=== PATIENT | male | born 1960 | race Caucasian/White ===

== ENCOUNTER 2016-10-26 19:05 | Inpatient (IN) | payer SELFPAY ==
[~2016-10-26] VITALS: Ht 182.9 cm; Wt 78.5 kg
[2016-10-26] MEDS ORDERED: ONDANSETRON HCL 4MG/2ML VIAL IV STA (23:32)
[2016-10-26] MEDS ORDERED: SODIUM CHLORIDE 0.9% 1,000 ML IV ONE (23:32)
[2016-10-26] MEDS ORDERED: MORPHINE SULFATE 4 MG/ML CPJ (NOT FOR IM USE) IV STA (23:32)
[2016-10-26] MEDS ORDERED: VANCOMYCIN 1 G PREMIX 200 ML IV ONE (23:45)
[2016-10-26] MEDS ORDERED: PIPERACILLIN/TAZ 3.375G PREMIX 50 ML IV ONE (23:45)
[2016-10-27 00:04] LABS: HEMATOCRIT. 40.9 % (42.0-52.0); HEMOGLOBIN. 14.4 g/dL (14.0-18.0); MEAN CORPUSCULAR HEMOGLOBIN 30.5 pg (28.0-32.0); MEAN PLATELET VOLUME 8.3 fl (7.4-10.4); PLATELET 128 x1000/uL (130-400); RED CELL DISTRIBUTION WIDTH 13.2 % (11.6-14.6)
[2016-10-27 00:09] LABS: CHLORIDE 95 mEq/L (98-107)
[2016-10-27 00:25] LABS: CARBON DIOXIDE 23 mEq/L (21-32); CREATINE KINASE 30 IU/L (39-308)
[2016-10-27 00:33] LABS: PLATELET ESTIMATE NORMAL
[2016-10-27] MEDS ORDERED: MORPHINE SULFATE 4 MG/ML CPJ (NOT FOR IM USE) IV ONE (02:15)
[2016-10-27] MEDS ORDERED: GUAIFENESIN 200MG/10ML SUGAR FREE UDC PO PRN (06:45)
[2016-10-27] MEDS ORDERED: DOCUSATE SODIUM 100MG CAPSULE PO PRN (06:45)
[2016-10-27] MEDS ORDERED: ONDANSETRON HCL 4MG/2ML VIAL IV PRN (06:45)
[2016-10-27] MEDS ORDERED: MAGNESIUM/ALUMINUM HYDROXIDE/SIMETHICONE 30ML UDC PO PRN (06:45)
[2016-10-27] MEDS ORDERED: NA PHOS,M-B/NA PHOS,DI-BA ENEMA 118ML PR PRN (06:45)
[2016-10-27] MEDS ORDERED: IPRATROPIUM/ALBUTEROL 0.5-3(2.5)MG/3ML NEB INH PRN (06:45)
[2016-10-27] MEDS ORDERED: LORAZEPAM 2MG/ML CPJ IV PRN (06:45)
[2016-10-27] MEDS ORDERED: CLONIDINE 0.1MG TABLET PO PRN (06:45)
[2016-10-27] MEDS ORDERED: SODIUM CHLORIDE 0.45% 1,000 ML IV SCH (07:30)
[2016-10-27 08:00] VITALS: BP 134/70
[2016-10-27] MEDS: PIPERACILLIN/TAZ 3.375G PREMIX 50 ML IV SCH ×3 (09:21→23:00)
[2016-10-27] MEDS: ASPIRIN 81MG EC TABLET PO SCH (09:22)
[2016-10-27] MEDS: ENOXAPARIN 40MG/0.4ML SYR SUBCUT SCH (09:22)
[2016-10-27] MEDS: HYDROMORPHONE HCL/PF 2MG/ML CPJ IV PRN ×3 (09:23→18:11)
[2016-10-27 10:50] LABS: CARBON DIOXIDE 23 mEq/L (21-32); CHLORIDE 97 mEq/L (98-107)
[2016-10-27] MEDS: VANCOMYCIN 1 G PREMIX 200 ML IV SCH ×2 (10:51→16:29)
[2016-10-27] MEDS: ACETAMINOPHEN 325MG TABLET PO PRN (11:14)
[2016-10-27 12:00] VITALS: BP 138/77
[2016-10-27] MEDS: HYDROCODONE/APAP 7.5/325MG 1 TAB TABLET PO PRN (13:39)
[2016-10-27 16:00] VITALS: BP 119/75
[2016-10-27 16:56] VITALS: BP 134/70
[2016-10-27] MEDS ORDERED: FUROSEMIDE 40MG/4ML VIAL IVP NR (19:30)
[2016-10-27 20:12] VITALS: BP 122/72
[2016-10-28 00:03] VITALS: BP 122/66
[2016-10-28] MEDS: VANCOMYCIN 1 G PREMIX 200 ML IV SCH ×3 (00:17→17:58)
[2016-10-28] MEDS: HYDROCODONE/APAP 7.5/325MG 1 TAB TABLET PO PRN (00:18)
[2016-10-28] MEDS: HYDROMORPHONE HCL/PF 2MG/ML CPJ IV PRN ×5 (02:05→21:41)
[2016-10-28 04:00] VITALS: BP 125/69
[2016-10-28 05:53] LABS: BASOPHILS % 0.3 % (0.0-2.0); EOSINOPHILS % 0.3 % (0.0-5.0); HEMATOCRIT. 37.7 % (42.0-52.0); HEMOGLOBIN. 13.1 g/dL (14.0-18.0); LYMPHOCYTES % 15.1 % (20.0-50.0); MEAN CORPUSCULAR HEMOGLOBIN 30.7 pg (28.0-32.0); MEAN CORPUSCULAR VOLUME 88.5 fL (80.0-94.0); MEAN PLATELET VOLUME 8.3 fl (7.4-10.4); MONOCYTES % 8.9 % (2.0-8.0); NEUTROPHILS % 75.4 % (40.0-76.0); PLATELET 158 x1000/uL (130-400); RED BLOOD CELL COUNT 4.26 mill/uL (4.7-6.1); RED CELL DISTRIBUTION WIDTH 13.4 % (11.6-14.6)
[2016-10-28 06:14] LABS: CARBON DIOXIDE 25 mEq/L (21-32); CHLORIDE 91 mEq/L (98-107)
[2016-10-28 06:17] LABS: HDL CHOLESTEROL 11 mg/dL (40-59); LDL CHOLESTEROL 71 mg/dL (5-100)
[2016-10-28] MEDS ORDERED: DEXTROSE 50% WATER 50ML SYRINGE IV PRN (07:30)
[2016-10-28] MEDS: PIPERACILLIN/TAZ 3.375G PREMIX 50 ML IV SCH ×3 (07:50→21:43)
[2016-10-28 08:00] VITALS: BP 116/93
[2016-10-28] MEDS: BLOOD SUGAR DIAGNOSTIC STRIP TEST SCH ×4 (08:00→21:17)
[2016-10-28] MEDS: ASPIRIN 81MG EC TABLET PO SCH (09:03)
[2016-10-28] MEDS: ENOXAPARIN 40MG/0.4ML SYR SUBCUT SCH (09:04)
[2016-10-28] MEDS: FUROSEMIDE 40MG/4ML VIAL IVP SCH (09:04)
[2016-10-28] MEDS: INSULIN LISPRO 100 UNITS/ML SUBCUT SCH ×4 (09:05→21:39)
[2016-10-28 12:00] VITALS: BP 145/69
[2016-10-28] MEDS ORDERED: POTASSIUM CHLORIDE 20MEQ TABLET SR PO SCH (12:15)
[2016-10-28 16:00] VITALS: BP 123/74
[2016-10-28 20:00] VITALS: BP 133/86
[2016-10-29 00:01] VITALS: BP 121/69
[2016-10-29] MEDS ORDERED: ACETAMINOPHEN WITH CODEINE 300/30MG TABLET ONE (01:00)
[2016-10-29] MEDS: VANCOMYCIN 1 G PREMIX 200 ML IV SCH ×3 (01:08→16:10)
[2016-10-29] MEDS: HYDROCODONE/APAP 7.5/325MG 1 TAB TABLET PO PRN (01:20)
[2016-10-29 04:00] VITALS: BP 119/73
[2016-10-29] MEDS: PIPERACILLIN/TAZ 3.375G PREMIX 50 ML IV SCH ×4 (04:09→20:59)
[2016-10-29] MEDS: HYDROMORPHONE HCL/PF 2MG/ML CPJ IV PRN ×5 (06:30→20:59)
[2016-10-29] MEDS: BLOOD SUGAR DIAGNOSTIC STRIP TEST SCH ×4 (07:35→22:47)
[2016-10-29 08:00] VITALS: BP 130/77
[2016-10-29] MEDS: FUROSEMIDE 40MG/4ML VIAL IVP SCH (08:24)
[2016-10-29] MEDS: ASPIRIN 81MG EC TABLET PO SCH (08:24)
[2016-10-29] MEDS: ENOXAPARIN 40MG/0.4ML SYR SUBCUT SCH (08:24)
[2016-10-29] MEDS: INSULIN LISPRO 100 UNITS/ML SUBCUT SCH ×4 (09:43→22:22)
[2016-10-29 12:00] VITALS: BP 2/98
[2016-10-29] MEDS: ACETAMINOPHEN 325MG TABLET PO PRN (12:11)
[2016-10-29 16:00] VITALS: BP 135/76
[2016-10-29 20:00] VITALS: BP 122/81
[2016-10-30] VITALS: BP 112/61
[2016-10-30] MEDS: VANCOMYCIN 1 G PREMIX 200 ML IV SCH ×2 (00:01→08:33)
[2016-10-30] MEDS: ACETAMINOPHEN 325MG TABLET PO PRN (00:06)
[2016-10-30] MEDS: PIPERACILLIN/TAZ 3.375G PREMIX 50 ML IV SCH ×2 (03:11→10:00)
[2016-10-30] MEDS: HYDROMORPHONE HCL/PF 2MG/ML CPJ IV PRN (03:11)
[2016-10-30 04:00] VITALS: BP 108/77
[2016-10-30 07:19] LABS: HEMATOCRIT. 37.2 % (42.0-52.0); HEMOGLOBIN. 12.9 g/dL (14.0-18.0); MEAN CORPUSCULAR HEMOGLOBIN 30.1 pg (28.0-32.0); MEAN PLATELET VOLUME 8.2 fl (7.4-10.4); PLATELET 223 x1000/uL (130-400); RED BLOOD CELL COUNT 4.28 mill/uL (4.7-6.1); RED CELL DISTRIBUTION WIDTH 13.5 % (11.6-14.6)
[2016-10-30] MEDS: BLOOD SUGAR DIAGNOSTIC STRIP TEST SCH (07:19)
[2016-10-30 07:20] LABS: CARBON DIOXIDE 31 mEq/L (21-32); CHLORIDE 86 mEq/L (98-107)
[2016-10-30 08:00] VITALS: BP 130/76
[2016-10-30] MEDS ORDERED: POTASSIUM CHLORIDE 20MEQ TABLET SR PO NR (08:00)
[2016-10-30] MEDS: ENOXAPARIN 40MG/0.4ML SYR SUBCUT SCH (08:32)
[2016-10-30] MEDS: ASPIRIN 81MG EC TABLET PO SCH (08:33)
[2016-10-30] MEDS: FUROSEMIDE 40MG/4ML VIAL IVP SCH (08:33)
[2016-10-30] MEDS: INSULIN LISPRO 100 UNITS/ML SUBCUT SCH (08:36)
[2016-10-30] MEDS: HYDROCODONE/APAP 7.5/325MG 1 TAB TABLET PO PRN (08:38)
[2016-10-30 10:28] VITALS: BP 130/76
[2016-10-30 17:26] LABS: PLATELET ESTIMATE NORMAL
== END 2016-10-30 12:00 | disposition home or self-care (01) | DRG 383 ==
LOC: ER 21:20 → 7WST 10-27 04:15 → EDBEDREQ 10-27 05:20 → ENRESERV 10-27 05:24
PROVIDERS: ADMIT Internal Medicine; ATTEND Internal Medicine
DX: L03.113 Cellulitis of right upper limb (principal); R65.10 Systemic inflammatory response syndrome (SIRS) of non-infectious origin without acute organ dysfunction; E86.0 Dehydration; E11.9 Type 2 diabetes mellitus without complications; S60.561A Insect bite (nonvenomous) of right hand, initial encounter; Y93.89 Activity, other specified; Y92.89 Other specified places as the place of occurrence of the external cause; Y99.8 Other external cause status
CPT/HCPCS: 36415; 80048; 80053; 80061; 80202; 82550; 82962; 83605; 85025; 87040; 96365; 96368; 96375; 96376; 97166; 99285; J1170; J1650; J1815; J1940; J2270; J2405; J2543; J3370; J7030; J7040; J7050